=== PATIENT | female | born 1930 | race Caucasian/White ===

== ENCOUNTER 2016-06-29 11:00 | Inpatient (IN) | payer MEDICARE, BC ==
--- NOTE | ~2016-06-29 | A ---
[facility] Nutrition Therapy DATE: 07/01/16 Patient: NAM GUPTA Physician: JAUN Address: [address] Room/Bed: [address] [place] [address], Zip: [place] [address] Admit Date: 06/29/16 Date of : 31 Height: 5 5 Weight: 103 47 NUTRITIONAL ASSESSMENT: REASON: Low BMI 86 yo female admitted for generalized weakness PMH: CHF, CAD s/p stents, HTN, cardiac catherization, hyperlipidemia, intracranial aneurysm, vitamin B12 deficiency, hypothyroidism Anthropometrics: Ht: 65" Adm wt: 47 kg BMI: 17.1 IBW: 56.8 kg, 83% IBW Labs: GFR 41.2 Meds: Levaquin (IV), zofran, lopressor, protonix, NaCl, levothroid (PO) I/O & Bowel function: 1080/251, last BM 06/30 Skin Integrity: Ramer rash all over Edema: none noted Estimated Nutrition Needs: Increased due to low body weight Diet: Heart healthy Assessment: Chart reviewed, events noted. RD spoke with the pt at bedside. Pt reports that she has been gradually losing weight over the past 3-4 months due to decreased appetite and eating small portions. Pt reportedly weighed 109# at her last visit to the Doctor's office 6-7 weeks ago, indicating ~6# weight loss since then. Pt states that her anxiety medication helps with her appetite; however, she does not take it every day. Pt consumes ~one Ensure supplement per day at home, and has consumed ~50% of each meal since admission. RD encouraged increased protein-calorie intake, and suggested smaller, more frequent meals. Pt voiced understanding, and is agreeable to one Ensure per day + [address] will order. Dx: Unintentional weight loss RT decreased appetite, possibly anxiety AEB ~6# weight loss in 6-7 weeks, BMI 17.1, 83% IBW. Intervention: 1. Liberalize to 2 gram Na+ diet 2. Add 6 small meals to diet order 3. Ensure once daily [facility] Nutrition Therapy DATE: 07/01/16 Patient: NAM GUPTA Physician: LINCOLN Address: [address] Room/Bed: [address] [place] [address], Zip: [place] [address] Admit Date: 06/29/16 Date of : 31 Height: 5 5 Weight: 103 47 Monitoring, Evaluation and Goals: 1. Oral intake; consume >50-75% meals 2. Labs; WNL 3. Weight; promote weight gain towards healthy BMI, prevent weight loss Recommendations: 1. Liberalize diet to 2 gram Na+/ 6 small meals to promote adequate nutrient intake and weight gain. Pt does not require fat restriction with heart healthy diet. 2. Ensure vanilla once daily for supplemental nutrition 3. Appreciate staff encouraging adequate PO intake as needed. Encourage smaller, more frequent meals. Pt is at mild-moderate nutritional risk. RD will follow hospital course. Respectfully, TOMER MIXON RD, LD Food and Nutrition[facility] cc: client file
--- NOTE | ~2016-06-29 | CT4 ---
[facility] A Service of [facility] RADIOLOGY TEXT RESULTS PATIENT: NAM GUPTA LOCATION: C3A 324-01 : 31 UNIT #: [id number] AGE: [address]: Tahmina Foy MD SEX: F ORDER DR: [id number] [facility] [address] [place], [place] [address] [id number] E MR#: [id number] #: [id number] NAME: NAM GUPTA : 1930 SEX: F STUDY DATE/TIME: 06/29/2016 11:25 UNIT: ADALBERTO ROOM: STUDY DESCRIPTION: CT Abd and Pelv Wo Cont Attending Physician: Erna Ledesma M.D. Referring Physician: Self Referral-Refer Use Only Ordering Physician: Erna Ledesma M.D. Primary Care Physician: Kasie Tesfaye M.D. MEDICAL IMAGING REPORT This report is preliminary unless electronic signature is present EXAM CT of the abdomen and pelvis without contrast dated 06/29/2016. COMPARISON CT abdomen and pelvis with contrast dated 07/28/2015. HISTORY Weakness for 2 weeks. Epigastric pain for 3-4 days. History of stroke and TIA. TECHNIQUE This CT exam was performed with one or more of the following radiation dose reduction techniques: automatic exposure control, adjustment of mA and/or kV according to patient size, and iterative reconstruction. FINDINGS CT of the abdomen and pelvis were obtained without IV or oral contrast in the axial plane followed by sagittal and coronal reformats. LOWER CHEST: There are multiple calcified right lower lobe lung nodules suggestive of old granulomatous disease. Minimal scarring/atelectasis is seen in the posterior right lung base with a noncalcified 3.5 mm right posterobasal lower lobe nodule. Minimal linear atelectasis/pleural thickening is noted along the inferior left oblique fissure. It appears to have slightly improved when compared to the previous study. Previously noted pleural thickening and bilateral lower lobe posterior infiltrate/pleural thickening have improved since last year. No pleural effusion is seen. Degenerative changes are in the thoracic spine. Heart is of normal size. There are probably coronary arteriovascular calcifications. ABDOMEN: Lack of IV contrast limits evaluation of solid organs. Grossly the liver, pancreas, right adrenal gland are within normal limits. There [facility] A Service of [facility] RADIOLOGY TEXT RESULTS PATIENT: NAM GUPTA LOCATION: C3A 324-01 : 31 UNIT #: [id number] AGE: [address]: Tahmina Foy MD SEX: F ORDER DR: is minimal nodular thickening of 1 of the limbs of the left adrenal gland measuring about 1.3 x 1 cm, nonspecific. No obvious calcifications are noted in bilateral kidneys to suggest renal stones. No hydronephrosis or obvious contour deforming mass. There are multiple calcifications in the spleen, likely related to old granulomatous disease. Splenic arterial calcification is also seen. Lack of oral contrast limits evaluation of the hollow organs of the GI tract. No evidence of bowel obstruction, free fluid or free air is seen intraperitoneally. Appendix is within normal limits without any signs of acute inflammation. Atherosclerotic aortic vascular calcification is noted with extension into the origins of bilateral renal arteries, worse on the left when compared to the right, and they probably cause stenosis of the vessels. Degenerative changes are noted in the lumbar spine at various levels, relatively worse at L4-5 with hhdq-nz-[id number] canal stenosis and bilateral neural foraminal narrowing along with facet changes. PELVIS: There are a few diverticula associated with the rectosigmoid colon. No associated acute diverticulitis is seen. Atrophied partly calcified uterus is noted, which is probably age appropriate in size. There is no free fluid or significant lymphadenopathy. Urinary bladder does not demonstrate any stones. There is diffuse bony osteopenia. IMPRESSION 1. There is improvement in the findings along the bilateral lung bases when compared to the previous study from last year. There is still some residual atelectasis/minimal infiltrate in the right lung base with a smaller noncalcified 3.5 mm lung nodule when compared to the prior study. Minimal pleural thickening/atelectasis was also noted along the inferior aspect of the left oblique fissure. 2. The left adrenal gland appears to be slightly prominent involving 1 of the limbs when compared to the other side. It could be within normal limits for this patient or it could contain a small nodule. This appearance was not as well seen in the previous study. It measures about 1.3 x 1 cm. 3. Diverticulosis without acute diverticulitis. 4. Visualized appendix and gallbladder are unremarkable. 5. Degenerative changes are noted at multiple levels of the thoracolumbar spine. 6. Arteriovascular calcifications are noted particularly involving the aorta and extending into the origins of bilateral renal arteries, greater on the left when compared to the right. They probably cause moderate to severe on the left and moderate on the right regarding renal arterial stenosis. Correlate clinically and, depending on the need, further imaging can be obtained. It is stable when compared to the prior study from last year. Dictated by... Henry Ramirez M.D. [facility] A Service of [facility] RADIOLOGY TEXT RESULTS PATIENT: NAM GUPTA LOCATION: [facility] 324-01 : 31 UNIT #: [id number] AGE: [address]: Tahmina Foy MD SEX: F ORDER DR: THIS IS AN ELECTRONICALLY VERIFIED REPORT Henry Ramirez M.D. at 07/01/2016 1:48 PM CPR/pc TD: 06/29/2016 14:09 JOB #: [id number] MEDICAL IMAGING REPORT Page 1 of 1 COPY
--- NOTE | ~2016-06-29 | HP ---
Unit #: [id number] #: [id number] Patient: NAM GUPTA [id number] [place], [place] [address] [id number] I MR#: [id number] NAME: NAM GUPTA ROOM: 324 Age: 86 Sex: F Admission Date: 06/29/2016 : 1930 Attending Physician: Yimi Fan M.D. Referring Physician: Self Referral-Refer Use Only Primary Care Physician: Kasie Tesfaye M.D. HISTORY AND PHYSICAL CHIEF COMPLAINT Generalized weakness for about three weeks. HISTORY OF PRESENT ILLNESS This is a pleasant, 86-year-old female with a past history of CHF, coronary artery disease status post stents, hypertension, hyperlipidemia, who basically has not been feeling well for the past two weeks. She recently saw her primary care provider prior to not feeling well and did not really know what exactly the issue was. Her blood pressure was elevated when she saw her primary care provider who placed her on Norvasc. Because she has had some sort of a bad recollection of a situation while being on Norvasc in the past she thought that Norvasc was responsible for her feeling generally weak. She presented to the emergency room for evaluation. She denies any cough per se, denies any nausea or vomiting, PND or orthopnea, denies any chest pain. Workup in the emergency room revealed atelectasis and small infiltrate in the right lung base on a CT scan of the abdomen and pelvis. REVIEW OF SYSTEMS Complete 10-point review of systems has been done and pertinent positives as noted above. She denied any dysuria. PAST MEDICAL HISTORY 1. Congestive heart failure. Her primary autoglazier is Dr. Schneider. 2. Coronary artery disease, status post cardiac stents placed. 3. Hypertension. 4. Hyperlipidemia. 5. Intracranial aneurysm. 6. B12 deficiency. 7. Hypothyroidism. 8. Chronic left bundle-branch block. 9. Anxiety and depression. PAST SURGICAL HISTORY 1. Cardiac catheterization and stent placement. 2. Cataract surgery. SOCIAL HISTORY No tobacco use, alcohol use or illicit drug use. The patient is a Full Code. FAMILY HISTORY Family history is notable for coronary artery disease. Unit #: [id number] #: [id number] Patient: NAM GUPTA MEDICATIONS Medications include: 1. Metoprolol tartrate 50 mg p.o. b.i.d. 2. Aspirin 81 mg p.o. daily. 3. Levothyroxine sodium 75 mcg p.o. daily. 4. Hydrochlorothiazide 12.5 mg p.o. daily. 5. Plavix 75 mg p.o. daily. PHYSICAL EXAMINATION GENERAL: On examination she was comfortable, not in any distress. The patient looks frail. VITAL SIGNS: Blood pressure on admission to the ER was 193/95, pulse 67, respiratory rate 16, temperature 97.6. HEENT: Pupils are equal and reactive to light and accommodation. NECK: Neck was supple, without thyromegaly. CARDIOVASCULAR SYSTEM: First and second heart sounds only. SKIN: Warm and dry, with no rashes. EXTREMITIES: No lower extremity edema that I could appreciate. LYMPHATIC SYSTEM: No enlarged peripheral lymphadenopathy that I could appreciate. PSYCHIATRIC ASSESSMENT: Did not seem to respond to external stimuli. Alert and oriented x3. CENTRAL NERVOUS SYSTEM EXAM: Moving all limbs spontaneously. Cranial nerves II-XII are grossly intact. DIAGNOSTIC STUDIES CARDIOVASCULAR: She had an EKG which showed sinus twin with ventricular rate of 59 beats per minute with a left bundle-branch block. IMAGING: She had a chest x-ray which was significant for calcifications notable in the region of her bilateral lower chest. She had a CT scan of her abdomen and pelvis which showed minimal linear atelectasis/pleural thickening noted along the inferior left oblique fissure and scarring with conclusion that she had a residual atelectasis and minimal infiltrates in the right lung base. LABORATORY: She had a urinalysis which showed leukocyte esterase 3+ and urobilinogen 0.2. She had a CBC: WBC of 9.7, hemoglobin and hematocrit 13.8 and 41.3, with a platelet count of 221. She had chemistry: Glucose of 106, BUN and creatinine 20 and 1.3 with a sodium and potassium of 113 and 3.6, chloride of 100. BNP was 83. ASSESSMENT AND PLAN 1. Pneumonia: Put her on Rocephin and Zithromax for community-acquired pneumonia. 2. Coronary artery disease: This is stable. Will get three sets of cardiac enzymes. Troponin in the emergency room was 0.07. Should her cardiac markers be elevated, my managing colleague would consider the need for a cardiology consult, (1) stent in the past. 3. Hypertension: Control is poor at this time. Patient might benefit from hydralazine 25 mg p.o. t.i.d. scheduled. 4. Debility: This is probably responsible for her generalized weakness. This may be an associated post-pneumonia debility (2) other electrolyte abnormalities. I will order a TSH, magnesium and phosphorus as well as a CBC and BMP in the morning. Unit #: [id number] #: [id number] Patient: NAM GUPTA 5. Hypothyroidism: Patient is on Synthroid. Will continue her thyroid supplementation at this time. 6. For DVT prophylaxis will put her on SCDs. 7. For GI prophylaxis will put her on Protonix 40 mg p.o. daily. Dictated by Corrine Grossman/susan TD: 06/29/2016 19:00 JOB #: [id number] HISTORY AND PHYSICAL Page 1 of 1 X Yimi Fan MD HISTORY AND PHYSICAL
--- NOTE | ~2016-06-29 | EKG ---
PATIENT: NAM GUPTA UNIT #: [id number] Ventricular Rate: 59 BPM Atrial Rate: 59 BPM P-R Interval: 176 ms QRS Duration: 136 ms Q-T Interval: 466 ms QTC Calculation(Bezet): 461 ms P Valmeyer: 85 degrees Calculated R Valmeyer: 6 degrees Calculated T Valmeyer: 142 degrees Diagnosis Line: Sinus bradycardia Diagnosis Line: Left bundle branch block Diagnosis Line: Abnormal ECG Diagnosis Line: When compared with ECG of 11-JUN-2015 10:23, Diagnosis Line: T wave inversion now evident in Anterior leads Diagnosis Line: Confirmed by LYN FINLEY MD ([id number]) on 06/30/2016 Diagnosis Line: 4:33:26 PM INTERPRETING MD: MALIA PATIÑO
--- NOTE | ~2016-06-29 | DS ---
Unit #: [id number] #: [id number] Patient: NAM GUPTA [id number] [address] [address] [id number] I MR#: [id number] NAME: NAM GUPTA ROOM: 324 Age: 86 Sex: F Admission Date: 06/29/2016 : 1930 Discharge Date: 07/01/2016 Attending Physician: Tahmina Foy M.D. Primary Care Physician: Kasie Tesfaye M.D. DISCHARGE SUMMARY DISCHARGE DIAGNOSES 1. Pneumonia. 2. Left adrenal nodule; needs outpatient followup. 3. History of chronic diastolic heart failure. 4. Coronary artery disease status post cardiac stent. 5. Hypertension. 6. Hyperlipidemia. 7. History of intracranial aneurysm. 8. B12 deficiency. 9. Hypothyroidism. 10. Chronic left bundle branch block. 11. Anxiety. 12. Depression. 13. Underweight with calorie malnutrition with weight loss. 14. Generalized weakness. CONSULTATIONS None. PROCEDURES None. DIAGNOSTIC TESTING IMAGING: CAT scan of the abdomen and pelvis shows residual minimal infiltrate in right lung base. Left adrenal gland with small nodule, 1.3 cm x 1 cm, present. Diverticulosis present. Chest x-ray shows no dense consolidation. CARDIOVASCULAR: EKG - Sinus bradycardia. LAB DATA: TSH 4.45. Troponin negative. Urinalysis shows WBCs 10-25, leukocyte esterase 3+. ALLERGIES Penicillin and ticlopidine. DISCHARGE MEDICATIONS 1. Metoprolol 50 mg p.o. b.i.d. 2. Hydralazine 25 t.i.d. 3. Aspirin 81 daily. 4. Plavix 75 daily. 5. Levothyroxine 75 mcg p.o. daily. 6. Levaquin 500 p.o. daily for 5 days. Unit #: [id number] #: [id number] Patient: NAM GUPTA HOSPITALIZATION COURSE This is an 86 year old admitted because of generalized weakness. Right lung base community-acquired pneumonia. The patient was started on Levaquin. The patient currently is afebrile. WBC normal. Patient will be discharged on p.o. Levaquin and to follow with family physician as an outpatient. Likely urinary tract infection. Continue with Levaquin. Cultures are pending. Hypertension, uncontrolled. I added hydralazine. I am going to discontinue Hydrochlorothiazide because of possible generalized weakness and dehydration. Generalized weakness/dehydration. Patient was seen by physical therapy. They recommend home with home health. Underweight with calorie malnutrition. Continue diet as per arts and crafts instructor. Chronic diastolic heart failure. Stable. Hypothyroidism. Stable. Patient has adrenal nodule. She needs repeat CT abdomen and pelvis in 3 months and follow with family physician with results. DISCHARGE PLAN 1. Discharge home with home health. 2. Follow with family physician in 1 week. Dictated by... Corrine Thompson/cassandra TD: 07/02/2016 07:55 JOB #: [id number] DISCHARGE SUMMARY Page 1 of 1 X Tahmina Fyo MD DISCHARGE SUMMARY
--- NOTE | ~2016-06-29 | CR72 ---
[facility] A Service of [facility] & [facility] RADIOLOGY TEXT RESULTS PATIENT: NAM GUPTA LOCATION: A 324-01 : 31 UNIT #: [id number] AGE: [address]: Tahmina Foy MD SEX: F ORDER DR: [id number] [facility] [address] [place], [place] [address] [id number] E MR#: [id number] Acc #: [id number] NAME: NAM GUPTA : 1930 SEX: F STUDY DATE/TIME: 06/29/2016 11:13 UNIT: ADALBERTO ROOM: STUDY DESCRIPTION: CR Chest Single View Portable Attending Physician: Erna Ledesma M.D. Referring Physician: Abril Self Referred Ordering Physician: Erna Ledesma M.D. Primary Care Physician: Kasie Tesfaye M.D. MEDICAL IMAGING REPORT This report is preliminary unless electronic signature is present EXAM Single view of the chest dated 06/29/2016 at 1113 hours. COMPARISON Single view of the chest dated 05/12/2014. HISTORY Mild congestion for 2 weeks. FINDINGS Single view of the chest was obtained. Lungs are hyperinflated suggestive of emphysematous changes. No patchy dense consolidation, pleural effusion, or pneumothorax. There are calcifications noted in the region of bilateral lower chest. They could represent calcified lung nodules or calcified pleural plaques. They appear to have worsened when compared to the prior chest x-ray from [address] abdomen and pelvis study from last year did demonstrate calcified right lower lobe lung nodules attributing for some of calcifications. The abdominal study does not include the entire chest. These calcifications have a relatively benign nonaggressive appearance. Heart is of normal size. Bones do not demonstrate any significant abnormality. Dictated by... Henry Ramirez M.D. THIS IS AN ELECTRONICALLY VERIFIED REPORT Henry Ramirez M.D. at 07/01/2016 1:47 PM CPR/tmw TD: 06/29/2016 13:41 JOB #: [id number] [facility] A Service of [facility] & [facility] RADIOLOGY TEXT RESULTS PATIENT: NAM GUPTA LOCATION: [facility] 324-01 : 31 UNIT #: [id number] AGE: [address]: Tahmina Foy MD SEX: F ORDER DR: MEDICAL IMAGING REPORT Page 1 of 1 COPY
[~2016-06-29 11:00] MED LIST: ALPRAZOLAM OD0.25 MG PO; ALPRAZOLAM PO; ALPRAZOLAM0.25 M1 PO; ALPRAZOLAM0.25 MG PO; AMITRIPTYLINE H25 MG PO; AMITRYPTYLINE PO; ASPIRIN EC81 M1 PO; ASPIRINEC PO; ATORVASTATIN CA10 MG PO; BAYER CHEWABLE81 MG PO; CLONIDINE HCL0.1 MG PO; CLOPIDOGREL BIS75 MG PO; CLOPIDOGREL75 MG PO; CYANOCOBAL1000 MCG/M INJ; CYANOCOBALAM1000 MCG PO; DIFLUCAN200 MG PO; DITROPAN5 MG PO; ECOTRIN81 M1 PO; HCTZ PO; HYDRALAZINE HCL25 MG PO; HYDROCHLOROTH12.5 MG PO; LASIX20 MG PO; LEVOTHYROXINE50 MCG PO; LIPITOR PO; LISINOPRIL10 MG PO; LISINOPRIL5 MG PO; LOPRESSOR PO; MECLIZINE HCL12.5 M2 PO; METOPROLOL SUC100 MG PO; METOPROLOL TAR25 MG PO; MUCINEX DM1 TAB.SR . PO; NITROGLYGERIN0.4 MG SL; NITROSTAT0.4 MG SL; NORVASC PO; PAIN RELIEF650 MG PO; PLAVIX PO; SYNTHROID PO; THERAPEUTIC M1 UDTA1 PO; TIROSINT25 MCG PO; TOPROL XL 50 MG50 MG PO; TOPROL XL PO; VITAMIN D50000 UNIT PO; ZITHROMAX PO
[2016-06-29 11:18] LABS: POC - CKMB <1.0 ng/mL (0.0-7.9); POC - TROPONIN 0.07 ng/mL (<=0.05)
[2016-06-29 11:21] LABS: BASOPHIL# 0.1 X10e3 (0-0.3); EOSINOPHIL# 0.4 X10e3 (0-0.7); EOSINOPHIL% 3.6 % (0.0-7.0); HEMATOCRIT 41.3 % (35.0-45.0); HEMOGLOBIN 13.8 gm/dL (12.0-16.0); LYMPHOCYTE# 2.2 X10e3 (1.0-3.5); LYMPHOCYTE% 22.6 % (17.0-45.0); MEAN CORPUSCULAR HGB CONC 33.3 g/dL (30-36); MEAN PLATELET VOLUME 8.5 FL (6.5-11.5); MONOCYTE# 0.7 X10e3 (0-1.0); NEUTROPHIL# 6.4 X10e3 (1.5-7.1); NEUTROPHIL% 65.8 % (40-75); PLATELET COUNT 221 X10e3 (140-420); RED BLOOD COUNT 4.44 X10e (3.90-5.30); RED CELL DISTRIBUTION WIDTH 13.5 % (11.0-15.5); WHITE BLOOD COUNT 9.7 X10e3 (4.0-10.5)
[2016-06-29 11:22] LABS: DIFF IND NO
[2016-06-29] MEDS ORDERED: HYDROCHLOROTH12.5 M1 PO (11:27)
[2016-06-29] MEDS ORDERED: ASPIRIN81 MG PO (11:27)
[2016-06-29] MEDS ORDERED: CLOPIDOGREL BIS75 MG PO (11:28)
[2016-06-29 11:52] LABS: ALBUMIN SERUM 4.3 g/dL (3.5-5.0); BILIRUBIN, DIRECT 0.2 mg/dL (0.0-0.2); BILIRUBIN,INDIRECT 0.6 mg/dL (0.0-0.9); BILIRUBIN,TOTAL 0.8 mg/dL (0.2-2.0); BUN/CREATININE RATIO 15.38; CALCIUM SERUM 9.5 mg/dL (8.4-10.2); CREATININE SERUM 1.3 mg/dL (0.6-1.4); GLOM FILT RATE Estimated 37.4 mL/min (>60); POTASSIUM 3.6 mmol/L (3.5-5.1); PROTEIN TOTAL SERUM 7.2 g/dL (6.0-8.3)
[2016-06-29 12:23] LABS: URINE SOURCE CLEAN CATCH
[2016-06-29 12:30] LABS: URINE APPEARANCE CLEAR; URINE BILIRUBIN NEG (NEG); URINE BLOOD NEG (NEG); URINE COLOR YELLOW; URINE GLUCOSE NEG (NEG); URINE KETONE NEG (NEG); URINE LEUKOCYTE ESTERASE 3+ (NEG); URINE NITRATE NEG (NEG); URINE PH 7.5 (5-8); URINE PROTEIN NEG (NEG); URINE SPECIFIC GRAVITY 1.011 (1.003-1.035); URINE UROBILINOGEN 0.2 MG/DL (NEG)
[2016-06-29 12:31] LABS: CULTURE INDICATED? YES; URBCS1 AUWI 0-2 /[HPF] (0-2); URINE BACTERIA AUWI NEG (NEGATIVE); URINE SQUAMOUS EPITHELIAL CELL NONE SEEN /[HPF]
[2016-06-29 12:47] LABS: POC - CKMB <1.0 ng/mL (0.0-7.9); POC - TROPONIN 0.07 ng/mL (<=0.05)
[2016-06-29 21:04] LABS: CK TOTAL 55 IU/L (26-140)
[2016-06-30 01:21] LABS: MB 1.3 ng/ml
[2016-06-30 07:00] LABS: HEMATOCRIT 40.5 % (35.0-45.0); HEMOGLOBIN 13.4 gm/dL (12.0-16.0); MEAN CELL VOLUME 92.9 FL (83-96); MEAN CORPUSCULAR HEMOGLOBIN 30.8 PG (28-34); MEAN CORPUSCULAR HGB CONC 33.1 g/dL (30-36); MEAN PLATELET VOLUME 8.6 FL (6.5-11.5); RED BLOOD COUNT 4.36 X10e (3.90-5.30); RED CELL DISTRIBUTION WIDTH 13.4 % (11.0-15.5); WHITE BLOOD COUNT 8.4 X10e3 (4.0-10.5)
[2016-06-30 07:43] LABS: BUN/CREATININE RATIO 17.5; CALCIUM SERUM 9.3 mg/dL (8.4-10.2); CREATININE SERUM 1.2 mg/dL (0.6-1.4); GLOM FILT RATE Estimated 41.2 mL/min (>60); MAGNESIUM 1.9 mg/dL (1.6-3.0); PHOSPHOROUS 4.3 mg/dL (2.5-4.6); POTASSIUM 3.6 mmol/L (3.5-5.1)
[2016-06-30 08:28] LABS: %MB 2.6 % (0.0-4.0); MB 1.6 ng/ml
[2016-07-01] MEDS ORDERED: HYDRALAZINE HCL25 MG PO (17:25)
[2016-07-01] MEDS ORDERED: LEVOFLOXACIN500 MG PO (17:26)
== END 2016-07-01 18:23 | disposition home health service (06) | DRG 194 ==
LOC: CED 11:00 → C3A PCU 14:40
PROVIDERS: Emergency Medicine; Family Medicine
DX: J18.9 Pneumonia, unspecified organism (principal); I50.32 Chronic diastolic (congestive) heart failure; I11.0 Hypertensive heart disease with heart failure; N39.0 Urinary tract infection, site not specified; E44.1 Mild protein-calorie malnutrition; Z68.1 Body mass index [BMI] 19.9 or less, adult; I25.10 Atherosclerotic heart disease of native coronary artery without angina pectoris; Z95.5 Presence of coronary angioplasty implant and graft; E78.5 Hyperlipidemia, unspecified; E53.8 Deficiency of other specified B group vitamins; E03.9 Hypothyroidism, unspecified; I44.7 Left bundle-branch block, unspecified; F41.9 Anxiety disorder, unspecified; F32.9 Major depressive disorder, single episode, unspecified; R53.1 Weakness; Z88.0 Allergy status to penicillin; Z98.49 Cataract extraction status, unspecified eye; Z79.82 Long term (current) use of aspirin; E86.0 Dehydration
CPT/HCPCS: 36415; 71010; 74176; 80048; 80076; 81003; 82550; 82553; 83690; 83735; 83880; 84100; 84443; 84484; 85025; 85027; 87086; 93005; 94760; 97110; 97116; 97162; 97530; 99285; G8978-GP; G8979-GP; J0456; J0696; J1956

== ENCOUNTER 2016-07-06 10:44 | Observation (INO) | payer MEDICARE, BC ==
--- NOTE | ~2016-07-06 | HP ---
Unit #: [id number] #: [id number] Patient: NAM GUPTA [id number] [place], [place] [address] [id number] I MR#: [id number] NAME: NAM GUPTA ROOM: 15725 Age: 86 Sex: F Admission Date: 07/06/2016 : 1930 Attending Physician: Vianey Warren M.D. Primary Care Physician: Kasie Tesfaye M.D. HISTORY AND PHYSICAL CHIEF COMPLAINT Diarrhea times 5 days. HISTORY OF PRESENT ILLNESS The patient is an 86-year-old female with past medical history of CHF, coronary artery disease, hypertension, hyperlipidemia, chronic left bundle branch block, intracranial aneurysm, B12 deficiency, hypothyroidism, anxiety depression, adrenal nodule, who presented to the emergency department for evaluation of the above. Of note, the patient was hospitalized at [facility] 06/29 through 07/01/2016 for pneumonia. She was discharged home on Levaquin which she has been taking as prescribed. The patient states that she has had diarrhea since the day she left the hospital. She reports three bouts of dark brown diarrhea within the past 24 hours. She has had one bout of nonbloody emesis. She denies any abdominal pain. No fever, no chest pain, no difficulty breathing, no cough, no urinary symptoms. In the emergency department, initial pulse and blood pressure were 78 and 132/66 respectively. Laboratory notable for BUN 24, creatinine 1.8. She was given 500 mL of normal saline in the emergency department. She is being admitted to [facility] for evaluation and further treatment. PAST MEDICAL HISTORY 1. Admission to [facility] 06/29 through 07/01/2016 for pneumonia. She was discharged home on Levaquin. 2. Congestive heart failure. The patient had an echocardiogram 03/28/2014 that showed an ejection fraction of 30% to 35% with apical akinesis, mild concentric left ventricular hypertrophy, mild mitral regurgitation, nnjy-lh-mjnjqfgu tricuspid regurgitation. She sees Dr. Schneider. 3. Coronary artery disease, status post cardiac stent placement. 4. Hypertension. 5. Hyperlipidemia. 6. Chronic left bundle branch block. 7. Intracranial aneurysm. 8. B12 deficiency. 9. Hypothyroidism. 10. Anxiety depression. 11. Adrenal nodule noted on CT of the abdomen and pelvis from 06/29/2016. PAST SURGICAL HISTORY 1. Cardiac catheterization. Unit #: [id number] #: [id number] Patient: NAM GUPTA 2. Cardiac stent placement. 3. Cataract surgery. ALLERGIES 1. Penicillin. 2. Ticlopidine. HOME MEDICATIONS 1. Metoprolol 50 mg b.i.d. 2. Aspirin 81 mg daily. 3. Levothyroxine 75 mcg daily. 4. Plavix 75 mg daily. 5. Hydralazine 25 mg t.i.d. 6. Levaquin 500 mg daily with one more dose remaining. SOCIAL HISTORY The patient's daughter lives with her. There is no tobacco or alcohol use. She typically walks without assistance. Her code status is a FULL CODE. FAMILY HISTORY Notable for coronary artery disease. REVIEW OF SYSTEMS A complete review of systems is negative except as indicated in the HPI. The patient has lost about 25 pounds over the past six to nine months. PHYSICAL EXAMINATION VITAL SIGNS: Temperature 97.9, pulse 78, respirations 16, blood pressure 132/66, oxygen saturation is 100% on room air. GENERAL: The patient is a very pleasant female who is awake and alert in no acute distress. HEENT: Head is atraumatic. Mucous membranes are dry. NECK: Supple. Trachea is midline. LUNGS: Clear to auscultation bilaterally with no increased work of breathing. HEART: Regular rate and rhythm. ABDOMEN: Soft, nontender. Bowel sounds present in all four quadrants. EXTREMITIES: Nontender with no pedal edema. NEUROLOGIC: Patient is awake and alert. She follows commands. PSYCHIATRIC: Mood and affect are normal. Patient is cooperative. SKIN OF EXAMINED AREAS: Warm and dry. DIAGNOSTIC STUDIES LABORATORY: Complete blood count is completely normal. C difficile from 07/04/2016 was negative. Comprehensive metabolic panel notable for bicarb 21, glucose 128, BUN 24, creatinine 1.8, lipase normal. Urinalysis notable for 1+ leukocyte esterase, 5-10 wbc's, no bacteria. CK is 52. Troponin is 0.04. ASSESSMENT The patient is an 86-year-old female with: 1. General weakness. 2. Nausea, vomiting, and diarrhea. 3. Avomy-fp-efmtiur kidney disease. The patient's creatinine was 1.2 on 06/30/2016, it is 1.[address] Clark's group as an outpatient. 4. History of pneumonia with one more dose of Levaquin remaining. Unit #: [id number] #: [id number] Patient: NAM GUPTA 5. Congestive heart failure with ejection fraction of 30% to 35% documented on echocardiogram 03/28/2014. 6. Coronary artery disease, status post cardiac stent placement followed by Dr. Schneider. 7. Hypertension. 8. Hyperlipidemia. 9. Chronic left bundle branch block. 10. Intracranial aneurysm. 11. B12 deficiency. 12. Hypothyroidism. 13. Anxiety and depression. 14. Adrenal nodule. The patient will follow up with her primary care physician regarding this. 15. Weight loss. PLAN 1. Admit for observation to intermediate level. 2. Normal saline at 75 mL per hour. 3. Healthy-heart diet if passes bedside swallow. 4. Stool for ova and parasites, C difficile culture and sensitivity. 5. Strict I's and O's. 6. Urine culture and sensitivity on urine in the lab. 7. Consult Dr. Clark regarding cogvb-po-mmzgonh kidney disease. 8. P.r.n. Zofran. 9. Check TSH. 10. Repeat labs in the morning including magnesium and phosphorus. 11. SCDs. 12. Additional workup and consultants based on above. 13. Regarding code status, the patient is a FULL CODE. 14. Check EKG if not done. Dictated by Corrine Caldwell/jenny TD: 07/06/2016 14:58 JOB #: [id number] HISTORY AND PHYSICAL Page 1 of 1 X Vianey Warren MD HISTORY AND PHYSICAL
--- NOTE | ~2016-07-06 | DS ---
Unit #: [id number] #: [id number] Patient: NAM BENSON [id number] [address] [address] [id number] I MR#: [id number] NAME: NAM BENSON ROOM: [facility] Age: 86 Sex: F Admission Date: 07/06/2016 : 1930 Discharge Date: 07/08/2016 Attending Physician: Jennifer Hughes M.D. Primary Care Physician: Kasie Tesfaye M.D. DISCHARGE SUMMARY PRINCIPAL DIAGNOSES 1. Antibiotic induced diarrhea. 2. Acute kidney injury on chronic kidney disease stage 3. Baseline creatinine approximately 1.3. Discharge creatinine 1.4. 3. Hypertension. 4. Non-anion gap metabolic acidosis secondary to diarrhea. 5. Recent pneumonia for which the patient has completed antibiotic therapy. 6. Chronic systolic congestive heart failure with ejection fraction of 30%-35%. 7. Mild to moderate tricuspid regurgitation 8. Coronary artery disease. 9. Hypothyroidism. 10. Anxiety and depression. 11. Adrenal nodule. 12. Mild protein malnutrition. 13. Underweight. CONSULTANTS Dr. Clark, nephrology. DIAGNOSTIC DATA IMAGING: CT scan of the abdomen and pelvis without contrast on 06/29/2016, with a prominent left adrenal gland. Diverticulosis noted. Arterial vascular calcifications noted involving the artery and the bilateral renal arteries, greater left than right. Chest x-ray on 06/29/2016 with hyperinflation. No other acute findings. CLINICAL HISTORY/HOSPITAL COURSE Ms. Benson is a nice 86-year-old female who presented to the emergency department with diarrhea. She was recently discharged on antibiotics secondary to pneumonia. Please refer to history and physical for further details. In the emergency department the patient was found to have a mildly elevated creatinine of 1.8. She was subsequently admitted. The patient was placed on low-dose IV fluids and nephrotoxic medications were held. Dr. Clark was also consulted. On the day of discharge creatinine is now at her baseline, which is 1.4. The patient may have underlying bilateral renal artery stenosis, but creatinine is not significantly elevated and blood pressure is stable. Thus, workup is going to be held at this time. In regard to the patient's diarrhea, this is resolved. Infectious workup was negative. She has completed antibiotics for her pneumonia and these Unit #: [id number] #: [id number] Patient: NAM BENSON will also be discontinued. The patient today is clinically stable and she will be discharged home. DISCHARGE CONDITION Stable. DISCHARGE DISPOSITION Discharge to home. DISCHARGE MEDICATIONS 1. Metoprolol tartrate 50 mg b.i.d. 2. Hydralazine 25 mg t.i.d. 3. Aspirin 81 mg daily. 4. Plavix 75 mg daily. 5. Levothyroxine 75 mcg p.o. daily. DISCHARGE DIET The patient was instructed to follow a heart healthy diet. She should increase her caloric intake and we did discuss six small meals daily. ACTIVITY She can increase her activity as tolerated. FOLLOWUP 1. The patient will follow up with Dr. Kasie Tesfaye in two weeks. 2. She should follow up with Dr. Clark in four to six weeks. Dictated by... Jennifer Hughes M.D. STONE/kathia TD: 07/09/2016 08:37 JOB #: [id number] DISCHARGE SUMMARY Page 1 of 1 X Jennifer Hughes MD X DISCHARGE SUMMARY
--- NOTE | ~2016-07-06 | CO ---
Unit #: [id number] #: [id number] Patient: AMANDA BENSON [id number] [address] [address] [id number] I MR#: [id number] NAME: AMANDA BENSON ROOM: [facility] Age: 86 Sex: F Admission Date: 07/06/2016 : 1930 Attending Physician: Vianey Warren M.D. Primary Care Physician: Kasie Tesfaye M.D. Consultation Date: 07/06/2016 CONSULTATION REPORT REASON FOR CONSULTATION Renal insufficiency. Thank you very much for asking us to see this patient in consultation. HISTORY OF PRESENT ILLNESS Ms. Amanda Benson is an 86-year-old female, with history of hypertension, history of diastolic congestive heart failure as well systolic with an EF of 30% to 35% and followed by Dr. Schneider for this, history of hypertension, who presented to the hospital today she has had diarrhea for about 4 to 5 days, decreased p.o. intake, a couple of episodes of vomiting. She denies any nonsteroidal use. Increased weakness over the last few days. The patient was noted upon presentation to have a BUN and creatinine of 24 and 1.8. Because of this, I was asked to see the patient. The patient was here in the hospital from 06/29/2016 to 07/01/2016 for pneumonia and was sent home on Levaquin. Creatinine on 06/30/2016 was 1.2. She states she did have a rash for 24 hours or less, on antibiotics she received last week, although I do not know at this point in time, which one that was. She denies any chest pain or shortness of breath. PAST MEDICAL HISTORY History of probably chronic kidney disease, stage 3 with creatinine has been 1.2 plus or minus over the last several years. History of left adrenal nodule found on CT scan; history of congestive heart failure with an EF around 30% to 35% with heart disease, status post angioplasty; history of hypertension; history of intracranial aneurysm; history of TIA many years ago, no residual; history of hyperlipidemia; history of hypothyroidism; history of anxiety; history of depression. ALLERGIES Include codeine and penicillin. SOCIAL HISTORY She lives with her daughter. Does not smoke or drink. MEDICATIONS At home include metoprolol 50 mg b.i.d., hydralazine 25 mg t.i.d., Plavix 75 mg a day, aspirin 81 mg a day, levothyroxine 75 mcg a day, and she was on Levaquin daily. FAMILY HISTORY Noncontributory. Unit #: [id number] #: [id number] Patient: AMANDA BENSON REVIEW OF SYSTEMS As mentioned in HPI. She denies any visual problems, sinus problems, cough, hemoptysis, sore throat, or difficulty swallowing. No neck pain or neck stiffness. No chest pain, chest heaviness, or palpitations. She denies any lower extremity swelling. No recent seizures or strokes. PHYSICAL EXAMINATION VITAL SIGNS: Temperature 97.9, pulse 78, blood pressure 132/66. HEENT: She is normocephalic and atraumatic. Pupils are equal, round, and reactive to light. Extraocular muscles are intact. Hearing appears to be normal. Mouth is clear. No erythema. No exudate. NECK: Supple. No JVD. CARDIAC: She has regular rhythm without a rub. No S3 or S4. LUNGS: Clear bilaterally. No wheezes, rhonchi, or rales. ABDOMEN: Bowel sounds positive, nontender, soft. No masses felt. No hepato-organomegaly noted. EXTREMITIES: She has no lower extremity swelling. Pulses are intact in lower extremities. JOINTS: No joint pain or joint swelling. SKIN: No rashes. NEURO: Appears to be intact motor and sensory grossly. : Deferred. DIAGNOSTIC STUDIES LABORATORY RESULTS: Shows sodium of 139, potassium 3.6, chloride is 106, bicarb is 21, BUN and creatinine 24 and 1.8, glucose 128. Calcium is 9.6, albumin is 3.9. CPK is 52, troponin is 0.01. Again on 06/30/2016 creatinine is 1.2. Hemoglobin 13.2, white count 6000, platelets 225,000. UA shows specific gravity of 1.02, no protein, 2 to 5 rbc's, 5 to 10, wbc's. IMAGING STUDIES: CT scan of the abdomen on 06/29/2016 showed some calcium along the renal artery suggest possible renal artery stenosis. ASSESSMENT AND PLAN 1. Acute kidney injury. This is a lady who probably has some mild chronic kidney disease, possibly related to hypertension versus age versus even theoretically bilateral renal artery stenosis, who now with acute renal insufficiency most likely related to volume depletion from nausea, vomiting, and diarrhea. I agree with some mild hydration, but obviously due to her low ejection fraction 30% to 35%, I agree with 75 mL an hour. We will check urine eosinophils to rule out acute interstitial nephritis with some reaction antibiotics last week. We will check random urine sodium and urine culture if not done since she did have a few wbc's in her urine. Unless her renal function does not improve, then we will check renal ultrasound, but for now, she had a CT last week, so if her renal function does not improve, then we will check that. We will check serum protein immunofixation, depending on how she does and depending on what further workup and treatment. 2. Diarrhea, rule out Clostridium difficile. 3. History of hypertension. Hold off on an angiotensin receptor wade or an CONNOR inhibitor for now. 4. Hypothyroidism. 5. History of pneumonia. Dictated by.Jaycob Clark M.D. Unit #: [id number] #: [id number] Patient: AMANDA BENSON JHONATHAN/modl TD: 07/07/2016 04:11 JOB #: [id number] CONSULTATION REPORT Page 1 of 1 X Kalyani Clark MD X CONSULTATION REPORT
--- NOTE | ~2016-07-06 | EKG ---
PATIENT: NAM GUPTA UNIT #: [id number] Ventricular Rate: 67 BPM Atrial Rate: 67 BPM P-R Interval: 186 ms QRS Duration: 128 ms Q-T Interval: 460 ms QTC Calculation(Bezet): 486 ms P [place]: 80 degrees Calculated R Harrison: -12 degrees Calculated T Harrison: 107 degrees Diagnosis Line: Normal sinus rhythm Diagnosis Line: Possible Left atrial enlargement Diagnosis Line: Left bundle branch block Diagnosis Line: Abnormal ECG Diagnosis Line: When compared with ECG of 29-JUN-2016 11:33, Diagnosis Line: No significant change was found Diagnosis Line: Confirmed by LYN FINLEY MD ([id number]) on 07/07/2016 Diagnosis Line: 7:19:59 AM INTERPRETING MD: MALIA PATIÑO
[2016-07-06 10:39] LABS: BASOPHIL% 0.5 % (0-2.5); EOSINOPHIL# 0.3 X10e3 (0-0.7); EOSINOPHIL% 4.6 % (0.0-7.0); HEMATOCRIT 38.9 % (35.0-45.0); HEMOGLOBIN 13.2 gm/dL (12.0-16.0); LYMPHOCYTE# 1.6 X10e3 (1.0-3.5); LYMPHOCYTE% 25.7 % (17.0-45.0); MEAN CELL VOLUME 91.3 FL (83-96); MEAN CORPUSCULAR HEMOGLOBIN 31.1 PG (28-34); MEAN PLATELET VOLUME 8.2 FL (6.5-11.5); MONOCYTE# 0.4 X10e3 (0-1.0); MONOCYTE% 5.9 % (3.0-12.0); NEUTROPHIL# 3.8 X10e3 (1.5-7.1); NEUTROPHIL% 63.3 % (40-75); PLATELET COUNT 225 X10e3 (140-420); RED BLOOD COUNT 4.26 X10e (3.90-5.30); RED CELL DISTRIBUTION WIDTH 13.3 % (11.0-15.5)
[2016-07-06 10:40] LABS: DIFF IND NO
[~2016-07-06 10:44] MED LIST changes: +ASPIRIN81 MG PO; +HYDROCHLOROTH12.5 M1 PO; +LEVOFLOXACIN500 MG PO
[2016-07-06 11:06] LABS: ALBUMIN SERUM 3.9 g/dL (3.5-5.0); BILIRUBIN, DIRECT 0.2 mg/dL (0.0-0.2); BILIRUBIN,INDIRECT 0.8 mg/dL (0.0-0.9); BUN/CREATININE RATIO 13.33; CALCIUM SERUM 9.6 mg/dL (8.4-10.2); CREATININE SERUM 1.8 mg/dL (0.6-1.4); GLOM FILT RATE Estimated 25.2 mL/min (>60); POTASSIUM 3.6 mmol/L (3.5-5.1); PROTEIN TOTAL SERUM 6.7 g/dL (6.0-8.3)
[2016-07-06 11:23] LABS: URINE SOURCE CLEAN CATCH
[2016-07-06 11:28] LABS: URINE APPEARANCE CLEAR; URINE BILIRUBIN NEG (NEG); URINE BLOOD NEG (NEG); URINE COLOR YELLOW; URINE GLUCOSE NEG (NEG); URINE KETONE NEG (NEG); URINE LEUKOCYTE ESTERASE 1+ (NEG); URINE NITRATE NEG (NEG); URINE PROTEIN NEG (NEG); URINE SPECIFIC GRAVITY 1.012 (1.003-1.035); URINE UROBILINOGEN 0.2 MG/DL (NEG)
[2016-07-06 11:30] LABS: CULTURE INDICATED? YES; URINE BACTERIA AUWI NEG (NEGATIVE); URINE SQUAMOUS EPITHELIAL CELL FEW /[HPF]
[2016-07-06 12:44] LABS: CK TOTAL 52 IU/L (26-140)
[2016-07-06 19:15] LABS: %MB 2.5 % (0.0-4.0); MB 1.6 ng/ml
[2016-07-07 05:18] LABS: BASOPHIL# 0.1 X10e3 (0-0.3); BASOPHIL% 1.2 % (0-2.5); EOSINOPHIL# 0.3 X10e3 (0-0.7); EOSINOPHIL% 2.9 % (0.0-7.0); LYMPHOCYTE# 2.4 X10e3 (1.0-3.5); MEAN CELL VOLUME 93.1 FL (83-96); MEAN CORPUSCULAR HEMOGLOBIN 30.9 PG (28-34); MEAN CORPUSCULAR HGB CONC 33.2 g/dL (30-36); MEAN PLATELET VOLUME 8.9 FL (6.5-11.5); MONOCYTE# 0.7 X10e3 (0-1.0); MONOCYTE% 8.1 % (3.0-12.0); NEUTROPHIL# 5.6 X10e3 (1.5-7.1); NEUTROPHIL% 61.8 % (40-75); PLATELET COUNT 208 X10e3 (140-420); RED BLOOD COUNT 3.87 X10e (3.90-5.30); RED CELL DISTRIBUTION WIDTH 13.5 % (11.0-15.5)
[2016-07-07 05:24] LABS: DIFF IND NO; WHITE BLOOD COUNT 9.1 X10e3 (4.0-10.5)
[2016-07-07 05:49] LABS: ALBUMIN SERUM 3.4 g/dL (3.5-5.0); BILIRUBIN,TOTAL 0.9 mg/dL (0.2-2.0); BUN/CREATININE RATIO 15.38; CALCIUM SERUM 8.7 mg/dL (8.4-10.2); CREATININE SERUM 1.3 mg/dL (0.6-1.4); GLOM FILT RATE Estimated 37.4 mL/min (>60); MAGNESIUM 1.9 mg/dL (1.6-3.0); PHOSPHOROUS 3.4 mg/dL (2.5-4.6); POTASSIUM 3.9 mmol/L (3.5-5.1); PROTEIN TOTAL SERUM 5.9 g/dL (6.0-8.3)
[2016-07-08 07:05] LABS: BUN/CREATININE RATIO 11.42; CALCIUM SERUM 8.6 mg/dL (8.4-10.2); CREATININE SERUM 1.4 mg/dL (0.6-1.4); GLOM FILT RATE Estimated 34.2 mL/min (>60); POTASSIUM 3.8 mmol/L (3.5-5.1)
== END 2016-07-08 14:10 | disposition home or self-care (01) ==
LOC: CED 10:44 → CEDOF 11:50 → C3A PCU 21:03
PROVIDERS: Emergency Medicine; Family Medicine; Internal Medicine Nephrology
DX: K52.1 Toxic gastroenteritis and colitis (principal); T36.95XA Adverse effect of unspecified systemic antibiotic, initial encounter; N17.9 Acute kidney failure, unspecified; I13.0 Hypertensive heart and chronic kidney disease with heart failure and stage 1 through stage 4 chronic kidney disease, or unspecified chronic kidney disease; N18.3 Chronic kidney disease, stage 3 (moderate); I50.22 Chronic systolic (congestive) heart failure; E87.2 Acidosis; I07.1 Rheumatic tricuspid insufficiency; I25.10 Atherosclerotic heart disease of native coronary artery without angina pectoris; E03.9 Hypothyroidism, unspecified; F41.8 Other specified anxiety disorders; E44.1 Mild protein-calorie malnutrition; R63.6 Underweight; E27.9 Disorder of adrenal gland, unspecified
CPT/HCPCS: 36415; 80048; 80053; 80076; 81003; 82550; 82553; 83690; 83735; 84100; 84300; 84443; 84484; 85025; 86334; 87086; 89190; 93005; 94760; 96374; 97161; 97165; 99285; G0378; G8978-GP; G8979-GP; G8980-GP; G8987-GO; G8988-GO; G8989-GO

== ENCOUNTER → 2016-09-04 | Outpatient (CLI) | payer MEDICARE, BC ==
[~2016-09-04] MED LIST changes: +AMLODIPINE BESYL5 MG PO; +LOSARTAN POTASS50 MG PO; +PROAMATINE2.5 MG PO
--- NOTE | ~2016-09-04 | MR3 ---
[facility] A Service of [facility] RADIOLOGY TEXT RESULTS PATIENT: NAM GUPTA LOCATION: [facility] : 31 UNIT #: [id number] AGE: [address]: Leti Cevallos MD SEX: F ORDER DR: [id number] [address] [place], [place] [address] [id number] MR#: [id number] Acc #: [id number] NAME: NAM GUPTA : 1930 SEX: F STUDY DATE/TIME: 09/04/2016 7:36 UNIT: [facility] ROOM: STUDY DESCRIPTION: MR Abdomen Wo Contrast Attending Physician: Gadiel Cevallos M.D. Referring Physician: Gadiel Cevallos M.D. Ordering Physician: Gadiel Cevallos M.D. Primary Care Physician: Kasie Tesfaye M.D. MRI CENTER REPORT This report is preliminary unless electronic signature is present. EXAM MR abdomen INDICATION Adrenal mass. Abnormal CT scan of the abdomen. TECHNIQUE Multiplanar MRI of the abdomen without contrast. COMPARISON CT abdomen 06/29/2016 and 07/28/2015. FINDINGS There is a trace right pleural effusion. The morphology of the adrenal glands is within normal limits. There is some slight thickening of the left adrenal gland, however no discrete nodule is identified. No suspicious mass or lesion. There is tree-in-bud nodularity and some mucus plugging in the right lower lobe. IMPRESSION 1. Normal morphology of the adrenal glands. No discrete mass or lesion is identified. There is minimal thickening of the medial limb left adrenal gland, however no nodule is present. 2. Trace right pleural effusion. Small area of mucous plugging in the right lower lobe is unchanged from multiple prior studies. Dictated by... Meng Rees M.D. [facility] A Service [facility] RADIOLOGY TEXT RESULTS PATIENT: NAM GUPTA LOCATION: [facility] : 31 UNIT #: [id number] AGE: [address]: Leti Cevallos MD SEX: F ORDER DR: THIS IS AN ELECTRONICALLY VERIFIED REPORT Meng Rees M.D. at 09/05/2016 1:13 PM AURORA/christen TD: 09/05/2016 12:28 JOB #: [id number] MRI CENTER REPORT Page 1 of 1 COPY
== END | disposition home or self-care (01) ==
LOC: CMRI 08-29 10:00
DX: E27.8 Other specified disorders of adrenal gland (principal)
CPT/HCPCS: 74181

== ENCOUNTER 2016-11-23 08:14 | Inpatient (IN) | payer MEDICARE, BC ==
[~2016-11-23] VITALS: Ht 165.1 cm; Wt 48.3 kg
--- NOTE | ~2016-11-23 | A ---
[facility] DATE: 11/25/16 Patient: NAM CANDY Physician: HORACIO Address: [address] Room/Bed: [address] [place] [address], Zip: [place] [address] Admit Date: 11/23/16 Date of : [birth year] Height: 5 5 Weight: 106 48.3 NUTRITIONAL ASSESSMENT: REASON: Seen due to low BMI Admitting dx: 86 y/o female admitted with weakness PMH: Reviewed Anthropometrics: Ht: 65", Wt: 106 lbs, BMI: 17 (underweight) 4531-9733 weight range: 113-120 lbs Labs: Reviewed; nothing significant Meds: Reviewed Assessment: Chart reviewed, events noted. See admitting dx and PMH as stated above. RD previously assessed this patient on 07/01/16 due to underweight status- note reviewed. Patient has had gradual weight loss over a couple of years, however her weight has been stable this year and since her last admission. Her appetite has also been good and she drinks Ensure at home. She is on a healthy heart diet with Ensure ordered TID. Per MD, pt may be discharged today after cardiology sees. See RD recs below. Dx: Underweight r/t PMH AEB BMI 17.1. Intervention: Regular diet Monitoring, Evaluation and Goals: 1. PO intake > 75% of meals/supps. 2. Gradual weight gain towards a healthy BMI range. Monitor: per protocol, criteria to determine if above goals met Recommendations: 1. Consider changing diet to regular to liberalize food choices due to underweight status. 2. Continue Ensure TID (pt prefers vanilla). RD will follow Mild nutrition risk Respectfully, [facility] DATE: 11/25/16 Patient: NAM GUPTA Physician: HORACIO Address: [address] Room/Bed: [address] [place] [address], Zip: [place] [address] Admit Date: 11/23/16 Date of : [birth year] Height: 5 5 Weight: 106 48.3 Tiffany Maldonado, CASE, [facility] [employer] [facility] cc: client file
--- NOTE | ~2016-11-23 | DS ---
Unit #: [id number] #: [id number] Patient: NAM GUPTA [id number] [address] [address] [id number] I MR#: [id number] NAME: NAM GUPTA ROOM: 561 Age: 86 Sex: F Admission Date: 11/25/2016 : 1930 Discharge Date: 11/27/2016 Attending Physician: Te Figueredo M.D. Primary Care Physician: Kasie Tesfaye M.D. DISCHARGE SUMMARY The patient is an 86-year-old woman with a history significant for coronary artery disease, congestive heart failure, hypertension, hyperlipidemia, left bundle branch block, hypothyroidism, who presented with symptoms of generalized weakness. During her admission she was found to have postural hypotension. Also during her admission she experienced syncopal episode associated with her postural hypotension; therefore the patient's blood pressure medications were all discontinued with the exception of metoprolol, whose dose was reduced to 25 mg twice a day and the patient was started on ProAmatine 5 mg p.o. three times a day. Following this her symptoms improved and she no longer felt dizzy or lightheaded. The patient was able to ambulate independently without the use of assistive device. The patient will be discharged home today. DISCHARGE DIAGNOSES 1. Syncope. 2. Postural hypotension. 3. Gait instability. DISCHARGE MEDICATIONS 1. Alprazolam 0.25 mg p.o. b.i.d. p.r.n. for anxiety. 2. Metoprolol 25 mg p.o. b.i.d. 3. Lipitor 10 mg p.o. b.i.d. 4. Aspirin 81 mg p.o. daily. 5. Plavix 75 mg p.o. daily. 6. Levothyroxine 50 mcg p.o. daily. 7. Nitroglycerin p.r.n. for chest discomfort. DISCHARGE INSTRUCTIONS Patient is to follow up with her line inspector, Dr. Schneider on 02/06/2017 at 12:15. Dictated by... Corrine Kauffman/greg TD: 11/28/2016 09:23 JOB #: [id number] Unit #: [id number] #: [id number] Patient: NAM GUPTA DISCHARGE SUMMARY Page 1 of 1 X X DISCHARGE SUMMARY
--- NOTE | ~2016-11-23 | EKG ---
PATIENT: NAM GUPTA UNIT #: [id number] Ventricular Rate: 62 BPM Atrial Rate: 62 BPM P-R Interval: 176 ms QRS Duration: 152 ms Q-T Interval: 468 ms QTC Calculation(Bezet): 475 ms P [place]: 80 degrees Calculated R [place]: 20 degrees Calculated T [place]: 151 degrees Diagnosis Line: Normal sinus rhythm Diagnosis Line: Left bundle branch block with repolarization Diagnosis Line: abnormality Diagnosis Line: Abnormal ECG Diagnosis Line: When compared with ECG of 06-JUL-2016 14:13, Diagnosis Line: QRS duration has increased Diagnosis Line: T wave inversion now evident in Inferior leads Diagnosis Line: Confirmed by CHAPO BEDOLLA MD ([id number]) on 11/25/2016 Diagnosis Line: 1:56:43 PM INTERPRETING MD: GRAEME PATIÑO
--- NOTE | ~2016-11-23 | CO ---
Unit #: [id number] #: [id number] Patient: NAM GUPTA [id number] [facility] [address]. [place], [place] [address] [id number] MR#: [id number] NAME: NAM GUPTA ROOM: 561 Age: 86 Sex: F Admission Date: 11/23/2016 : 1930 Attending Physician: Vianey Warren M.D. Primary Care Physician: Kasie Tesfaye M.D. CONSULTATION REPORT DICTATED FOR [facility]. Dr. Saman Rodriguez is the rounding physician. REASON FOR ADMISSION Weakness and short of breath. HISTORY OF PRESENT ILLNESS The patient is an 86-year-old white female, who is known to Dr. Schneider with a history of coronary artery disease, anterolateral wall ID during a heart catheterization complication, chronic systolic heart failure with an EF of 30% to 35%, hypertension, hyperlipidemia, old left bundle-branch block, hypothyroidism, anxiety, and depression. The patient presented to the [facility]'s ED at 8:20 this morning with complaint of weakness and shortness of breath. The patient is very nondescript about timing of the worsening of her symptoms. The patient states that she has been weak and short of breath off and on for the past couple of years and she has had several medication adjustments as she relates the side affects of medications being the weakness and shortness of breath. The patient states though however for the past week, it has been worse and even today she was unable to stand. This inability to stand prompted her to come to the ER. She states that her primary care doctor had drawn some lab work in about a week ago. Her renal function was up, so he cut her hydrochlorothiazide and losartan doses back. She denies any nausea, vomiting, diarrhea, fevers, chills, lightheadedness, dizziness, or syncope. The patient reports that she was on a pill at home, she stopped taking it about a week ago because it made her feel poorly, but she is unable to tell me what the medication was or what it was even before. Last cardiac cath was in 11/2011. Left main was normal. Left circumflex 30% proximally. OM1 was normal. She had a patent LAD stent to the proximal LAD, distal LAD after the 2nd diagonal was 90% to 95% beyond that which was normal. RCA had a patent stent and her EF at that time was noted to be 60%. 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 Last echo in 03/2014, mild MR, [id number] TR, EF of 30% to 35% with apical akinesis, mild concentric LVH. PAST MEDICAL HISTORY 1. Coronary artery disease. 2. Anterolateral wall ID during heart catheterization in 2011. 3. LVEF of 30% to 35%. 4. Ischemic cardiomyopathy. 5. Hypertension. Unit #: [id number] #: [id number] Patient: NAM GUPTA 6. Hyperlipidemia. 7. Old left bundle-branch block. 8. Hypothyroidism. 9. Anxiety. 10. Depression. 11. Never smoker. 12. Intracranial aneurysm. 13. Vitamin B12 deficiency. 14. Adrenal nodule noted on CT of the abdomen and pelvis from 06/2016. PAST SURGICAL HISTORY Includes, 1. Heart catheterization. 2. Stent placement. 3. Cataract surgery. SOCIAL HISTORY The patient lives with her daughter. There is no alcohol or tobacco abuse. The patient typically walks around her house and does for herself which she states she has been able to do; however, she has not been able to get her on coffee and do some things that she wants to do due to her fatigue and weakness. FAMILY HISTORY Positive for coronary artery disease nonspecific. ALLERGIES Include penicillin and ticlopidine. HOME MEDICATIONS Include metoprolol 50 p.o. b.i.d., aspirin 81 mg p.o. daily, Synthroid 50 mcg p.o. daily, Plavix 75 mg p.o. daily, atorvastatin 10 mg p.o. daily, Norvasc 5 mg p.o. daily, hydrochlorothiazide 12.5 p.o. daily, Xanax 0.25 p.o. b.i.d. as needed for anxiety, Nitrostat 0.4 mg sublingual as needed for chest pain. REVIEW OF SYSTEMS See HPI. PHYSICAL EXAMINATION GENERAL: This is an 86-year-old white female, who is alert and oriented x3, in no apparent distress. VITAL SIGNS: Blood pressure is 172/70, pulse 62, temperature 97.6, respirations 22. HEENT: Pupils are equal, round, and reactive. Oral mucosa is moist. NECK: No JVD. No thyromegaly. No lymphadenopathy. No carotid bruits. HEART: S1 and S2. No S3 or S4. No clicks. No rubs. No murmurs. LUNGS: Clear. ABDOMEN: Soft. Bowel sounds positive. Nontender and nondistended. EXTREMITIES: No swelling. NEUROLOGICAL: No neuro deficits noted. DIAGNOSTIC STUDIES LABORATORY RESULTS: Troponin of less than 0.06, then 0.07. TSH 1.11. White count 7.6, hemoglobin 14.7, hematocrit 43.6, and platelets are 256. Sodium 135, potassium 4, chloride 96, CO2 of 26, glucose 98, BUN 22, creatinine 1.4, GFR 34.2, AST 34, ALT 16, alkaline phosphatase 61. UA was positive for leukocytes. Culture pending. Unit #: [id number] #: [id number] Patient: NAM GUPTA IMAGING STUDIES: Chest x-ray shows no acute processes. CARDIOVASCULAR STUDIES: EKG shows sinus rhythm with a left bundle-branch block. IMPRESSION 1. Generalized weakness. 2. Shortness of breath. 3. Coronary artery disease with a history of myocardial infarction and stents to the LAD and RCA. 4. Left ventricular ejection fraction of 30% to 35%. 5. Ischemic cardiomyopathy. 6. Hypertension. 7. Hyperlipidemia. 8. Urinary tract infection, culture pending. 9. Acute on chronic kidney disease. 10. Vitamin B12 deficiency. 11. Hypothyroidism. PLAN 1. At this time, we will plan for conservative medical management. Troponin is really indeterminate at 0.07. We will plan to trend the troponins every 6 hours x3 more sets. We will also obtain BMP, Mag, and CBC in the morning. We will obtain daily standing weights as well as strict I's and O's. Dr. Rodriguez wants to have the patient get overnight oximetry on room air. We will screen for sleep apnea with this test. 2. Further recommendations pending current test results and the patient's hospital course. Dictated by... BRENDA Vargas TD: 11/24/2016 10:53 JOB #: [id number] CONSULTATION REPORT Page 1 of 1 X X CONSULTATION REPORT
--- NOTE | ~2016-11-23 | HP ---
Unit #: [id number] #: [id number] Patient: NAM GUPTA [id number] [facility]. [place], [place] [address] [id number] I MR#: [id number] NAME: NAM GUPTA ROOM: 26186 Age: 86 Sex: F Admission Date: 11/23/2016 : 1930 Attending Physician: Vianey Warren M.D. Primary Care Physician: Kasie Tesfaye M.D. HISTORY AND PHYSICAL CHIEF COMPLAINT Weakness. HPI The patient is an 86-year-old female with a past medical history of coronary artery disease, congestive heart failure, hypertension, hyperlipidemia, left bundle branch block, intracranial aneurysm, B12 deficiency, hypothyroidism, anxiety, depression, adrenal nodule who presented to the emergency department for evaluation of the above. The patient states that she has had a 2 week history of increasing generalized weakness and dyspnea on exertion. She states that she has been short of breath when walking across the room. She reports a very occasional productive cough. She denies any fever. No chest pain, no paroxysmal nocturnal dyspnea, no swelling in the legs. She states that her weight fluctuates within a couple of pounds. She states that her appetite has been good. She denies any vomiting or diarrhea. She has had urinary frequency. She states that about a month ago Dr. Schneider had adjusted her medications. She states that about a week ago she was seen by her primary care physician who decreased a medication due to what sounds like possibly abnormal renal function. The patient doesn't recall the names of the medications that were changed. In the emergency department, urinalysis shows findings concerning for urinary tract infection. EKG shows left bundle branch block which is chronic. Initial troponin is 0.06, repeat is 0.07. She is being admitted to [facility] for evaluation and further treatment. She was given Rocephin in the emergency department. PAST MEDICAL HISTORY 1. Admission to [facility] July 06 through the 2016 for antibiotic-induced diarrhea. She also had acute on chronic kidney injury. Baseline creatinine is approximately 1.3. Discharge creatinine was 1.4. 2. Congestive heart failure. The patient had an echocardiogram March 28, 2014, that showed an ejection fraction of 30-35% with apical akinesis, mild concentric left ventricular hypertrophy, mild mitral regurgitation, mild to moderate tricuspid regurgitation. The patient sees Dr. Schneider. 3. Coronary artery disease, status post cardiac stent placement. 4. Hypertension. 5. Hyperlipidemia. 6. Chronic left bundle branch block. 7. Intracranial aneurysm. Unit #: [id number] #: [id number] Patient: NAM GUPTA 8. B12 deficiency. 9. Hypothyroidism. 10. Anxiety/depression. 11. Adrenal nodule. PAST SURGICAL HISTORY 1. Cardiac catheterization. 2. Cardiac stent placement. 3. Cataract surgery. SOCIAL HISTORY The patient's daughter lives with her. There is no tobacco or alcohol use. She typically walks without assistance. Her code status is a Full Code. FAMILY HISTORY Notable for coronary artery disease. ALLERGIES Penicillin, ticlopidine. HOME MEDICATIONS 1. Metoprolol 50 mg twice daily. 2. Aspirin 81 mg daily. 3. Levothyroxine 50 mcg daily. 4. Plavix 75 mg daily. 5. Atorvastatin 10 mg daily. 6. Amlodipine 5 mg daily. 7. Hydrochlorothiazide 12.5 mg daily. 8. Alprazolam 0.25 mg twice daily p.r.n. 9. Nitroglycerin 0.4 mg sublingual p.r.n. REVIEW OF SYSTEMS A complete review of systems is negative except as indicated in the HPI. The patient states that she has felt intermittently lightheaded in association with weakness. She states that the lightheadedness has been worse with position change. DIAGNOSTIC TESTS CARDIOVASCULAR: EKG shows chronic left bundle branch block with a rate of 62 beats per minute. IMAGING: Chest x-ray shows nothing acute. LABORATORY: Troponin is 0.06. Repeat was 0.07. Complete blood count is completely normal. Comprehensive metabolic panel notable for chloride 96, BUN and creatinine 22 and 1.4 respectively. TSH is 1.11. Urinalysis is notable for 3+ leukocyte esterase, 10-25 white blood cells, 1+ bacteria with moderate squamous cells. PHYSICAL EXAMINATION VITAL SIGNS: Temperature is 97.8, pulse 77, respirations 14, blood pressure 131/85. Oxygen saturation 100% on room air. GENERAL: The patient is a very pleasant female who is awake and Unit #: [id number] #: [id number] Patient: NAM GUPTA alert in no acute distress. HEENT: The head is atraumatic. Mucous membranes are moist. NECK: Supple. Trachea is midline. CARDIOVASCULAR: Regular rate and rhythm. LUNGS: Clear to auscultation bilaterally with no increased work of breathing. ABDOMEN: Soft, nontender with bowel sounds present in all four quadrants. EXTREMITIES: Nontender with no pedal edema. NEURO: The patient is awake and alert. She follows commands. PSYCH: Mood and affect are normal. The patient is cooperative. SKIN: Skin of examined areas is warm and dry. ASSESSMENT The patient is a 86-year-old female with: 1. General weakness. 2. Urinary tract infection. The patient has not had a positive urine culture in [facility]. She was given Rocephin in the emergency department. 3. Elevated troponin, indeterminate. The patient has had dyspnea on exertion. EKG shows chronic left bundle branch block. Troponin was 0.06 and then subsequently 0.07. 4. Dyspnea on exertion, concerning for possible anginal equivalent versus worsening CHF. 5. Coronary artery disease, status post stent placement. 6. Congestive heart failure with ejection fraction of 30-35% noted on echocardiogram in March of 2014. 7. Hypertension. 8. Hyperlipidemia. 9. Chronic left bundle branch block. 10. Intracranial aneurysm. 11. B12 deficiency. 12. Hypothyroidism. 13. Anxiety/depression. 14. Adrenal nodule. PLAN 1. Admit for observation to intermediate level. 2. Healthy heart diet. 3. Fall precautions. 4. PT/OT to evaluate and treat. 5. Orthostatics q. shift. 6. Blood cultures x2. 7. Urine culture and sensitivity on urine in the lab. 8. Rocephin 1 g IV daily pending results of urine culture. 9. Serial cardiac enzymes. 10. Fasting lipid panel. 11. 2D echo has already been ordered. 12. Consult Dr. Schneider regarding elevated troponin. 13. Supplemental oxygen. 14. SCDs for DVT prophylaxis. 15. Repeat labs in the morning. 16. Additional workup and consultants based on above. Dictated by Vianey Warren M.D. Unit #: [id number] #: [id number] Patient: NAM GUPTA AW/df TD: 11/23/2016 14:21 JOB #: [id number] HISTORY AND PHYSICAL Page 1 of 1 X Vianey Warren MD X HISTORY AND PHYSICAL
--- NOTE | ~2016-11-23 | CR72 ---
[facility] A Service of [facility] RADIOLOGY TEXT RESULTS PATIENT: NAM GUPTA LOCATION: [facility] [id number] : 31 UNIT #: [id number] AGE: [address]: Vianey Warren MD SEX: F ORDER DR: [id number] [facility] [address] [place], [place] [address] [id number] MR#: [id number] Acc #: [id number] NAME: NAM GUPTA : 1930 SEX: F STUDY DATE/TIME: 11/23/2016 9:22 UNIT: [facility] ROOM: [facility] STUDY DESCRIPTION: CR Chest Single View Portable Attending Physician: Vianey Warren M.D. Ordering Physician: Zenaida Iglesias P.A.-C. Primary Care Physician: Kasie Tesfaye M.D. MEDICAL IMAGING REPORT This report is preliminary unless electronic signature is present EXAM Portable chest, 11/23/2016. HISTORY Shortness of breath and generalized weakness for 1 week. Benign essential hypertension, anemia. FINDINGS Exam is somewhat limited by patient rotation. Cardiac and mediastinal structures are stable compared with 06/29/2016. Lungs are hyperinflated with emphysematous and fibrotic changes characteristic of COPD. No airspace consolidation is seen. There are no pleural effusions. IMPRESSION COPD. No active pulmonary disease. Dictated by... Moe Sr M.D. THIS IS AN ELECTRONICALLY VERIFIED REPORT Moe Sr M.D. at 11/24/2016 6:32 AM WILLIE/mal TD: 11/23/2016 22:17 JOB #: [id number] MEDICAL IMAGING REPORT Page 1 of 1 COPY
[~2016-11-23 08:14] MED LIST changes: -AMLODIPINE BESYL5 MG PO; -LOSARTAN POTASS50 MG PO; -PROAMATINE2.5 MG PO
[2016-11-23 09:14] LABS: POC - CKMB <1.0 ng/mL (0.0-7.9); POC - TROPONIN 0.06 ng/mL (<=0.05)
[2016-11-23 09:16] LABS: BASOPHIL# 0.1 X10e3 (0-0.3); BASOPHIL% 1.4 % (0-2.5); EOSINOPHIL# 0.1 X10e3 (0-0.7); EOSINOPHIL% 1.7 % (0.0-7.0); HEMATOCRIT 43.6 % (35.0-45.0); HEMOGLOBIN 14.7 gm/dL (12.0-16.0); LYMPHOCYTE# 2.3 X10e3 (1.0-3.5); LYMPHOCYTE% 29.6 % (17.0-45.0); MEAN CELL VOLUME 89.6 FL (83-96); MEAN CORPUSCULAR HEMOGLOBIN 30.3 PG (28-34); MEAN CORPUSCULAR HGB CONC 33.8 g/dL (30-36); MEAN PLATELET VOLUME 8.7 FL (6.5-11.5); MONOCYTE# 0.6 X10e3 (0-1.0); NEUTROPHIL# 4.5 X10e3 (1.5-7.1); NEUTROPHIL% 59.3 % (40-75); PLATELET COUNT 256 X10e3 (140-420); RED BLOOD COUNT 4.86 X10e (3.90-5.30); RED CELL DISTRIBUTION WIDTH 13.5 % (11.0-15.5); WHITE BLOOD COUNT 7.6 X10e3 (4.0-10.5)
[2016-11-23 09:17] LABS: DIFF IND NO
[2016-11-23 09:45] LABS: ALBUMIN SERUM 4.5 g/dL (3.5-5.0); BILIRUBIN, DIRECT 0.3 mg/dL (0.0-0.2); BILIRUBIN,INDIRECT 0.7 mg/dL (0.0-0.9); BUN/CREATININE RATIO 15.71; CALCIUM SERUM 9.9 mg/dL (8.4-10.2); CREATININE SERUM 1.4 mg/dL (0.6-1.4); GLOM FILT RATE Estimated 34.2 mL/min (>60); PROTEIN TOTAL SERUM 8.1 g/dL (6.0-8.3)
[2016-11-23 10:10] LABS: URINE SOURCE CLEAN CATCH
[2016-11-23 10:33] LABS: URINE APPEARANCE CLOUDY; URINE BILIRUBIN NEG (NEG); URINE BLOOD NEG (NEG); URINE COLOR YELLOW; URINE GLUCOSE NEG (NEG); URINE KETONE TRACE (NEG); URINE LEUKOCYTE ESTERASE 3+ (NEG); URINE NITRATE NEG (NEG); URINE PH 7.5 (5-8); URINE PROTEIN NEG (NEG); URINE SPECIFIC GRAVITY 1.009 (1.003-1.035); URINE UROBILINOGEN 0.2 MG/DL (NEG)
[2016-11-23 10:35] LABS: CULTURE INDICATED? YES; URBCS1 AUWI 0-2 /[HPF] (0-2); URINE BACTERIA AUWI 1+ (NEGATIVE); URINE SQUAMOUS EPITHELIAL CELL MOD /[HPF]
[2016-11-23 10:52] LABS: POC - CKMB <1.0 ng/mL (0.0-7.9); POC - TROPONIN 0.07 ng/mL (<=0.05)
[2016-11-23] MEDS ORDERED: ATORVASTATIN CA10 MG PO (11:10)
[2016-11-23] MEDS ORDERED: HYDROCHLOROTH12.5 MG PO (11:11)
[2016-11-23] MEDS ORDERED: AMLODIPINE BESYL5 MG PO (11:11)
[2016-11-23] MEDS ORDERED: ALPRAZOLAM0.25 MG PO (11:12)
[2016-11-23] MEDS ORDERED: LOSARTAN POTASS50 MG PO (11:14)
[2016-11-23] MEDS ORDERED: NITROSTAT0.4 MG SL (11:14)
[2016-11-23 13:51] LABS: CHOLESTEROL 168 mg/dL (0-200); HDL CHOLESTEROL 68 mg/dL (35-95); LDL CHOLESTEROL 79 mg/dL (-130); LDL/HDL RATIO 1 RATIO (0-4); TRIGLYCERIDES 105 mg/dL (10-160)
[2016-11-23 17:06] LABS: POC - CKMB <1.0 ng/mL (0.0-7.9); POC - TROPONIN 0.06 ng/mL (<=0.05)
[2016-11-23 19:54] LABS: CK TOTAL 56 IU/L (26-140)
[2016-11-23 23:23] LABS: %MB 3.3 % (0.0-4.0); MB 2.6 ng/ml
[2016-11-24 07:25] LABS: %MB 1.3 % (0.0-4.0); MB 2.2 ng/ml
[2016-11-24 08:06] LABS: BASOPHIL# 0.1 X10e3 (0-0.3); BASOPHIL% 0.7 % (0-2.5); EOSINOPHIL# 0.2 X10e3 (0-0.7); EOSINOPHIL% 1.9 % (0.0-7.0); HEMATOCRIT 38.9 % (35.0-45.0); HEMOGLOBIN 13.1 gm/dL (12.0-16.0); LYMPHOCYTE# 2.1 X10e3 (1.0-3.5); LYMPHOCYTE% 25.2 % (17.0-45.0); MEAN CELL VOLUME 90.7 FL (83-96); MEAN CORPUSCULAR HEMOGLOBIN 30.5 PG (28-34); MEAN CORPUSCULAR HGB CONC 33.7 g/dL (30-36); MEAN PLATELET VOLUME 8.2 FL (6.5-11.5); MONOCYTE# 0.9 X10e3 (0-1.0); MONOCYTE% 11.3 % (3.0-12.0); NEUTROPHIL% 60.9 % (40-75); PLATELET COUNT 239 X10e3 (140-420); RED BLOOD COUNT 4.29 X10e (3.90-5.30); RED CELL DISTRIBUTION WIDTH 13.5 % (11.0-15.5); WHITE BLOOD COUNT 8.3 X10e3 (4.0-10.5)
[2016-11-24 08:13] LABS: DIFF IND NO
[2016-11-24 08:33] LABS: BUN/CREATININE RATIO 19.23; CALCIUM SERUM 9.2 mg/dL (8.4-10.2); CREATININE SERUM 1.3 mg/dL (0.6-1.4); GLOM FILT RATE Estimated 37.4 mL/min (>60); MAGNESIUM 1.9 mg/dL (1.6-3.0); POTASSIUM 3.2 mmol/L (3.5-5.1)
[2016-11-25 05:44] LABS: HEMATOCRIT 37.9 % (35.0-45.0); MEAN CORPUSCULAR HEMOGLOBIN 30.8 PG (28-34); MEAN CORPUSCULAR HGB CONC 34.2 g/dL (30-36); MEAN PLATELET VOLUME 8.1 FL (6.5-11.5); RED BLOOD COUNT 4.21 X10e (3.90-5.30); RED CELL DISTRIBUTION WIDTH 13.3 % (11.0-15.5); WHITE BLOOD COUNT 8.9 X10e3 (4.0-10.5)
[2016-11-25 06:47] LABS: CALCIUM SERUM 9.3 mg/dL (8.4-10.2); CREATININE SERUM 1.3 mg/dL (0.6-1.4); GLOM FILT RATE Estimated 37.4 mL/min (>60); POTASSIUM 4.1 mmol/L (3.5-5.1)
[2016-11-25 18:22] LABS: URINE SOURCE CLEAN CATCH
[2016-11-25 18:28] LABS: URINE APPEARANCE CLEAR; URINE BILIRUBIN NEG (NEG); URINE BLOOD NEG (NEG); URINE COLOR YELLOW; URINE GLUCOSE NEG (NEG); URINE KETONE NEG (NEG); URINE LEUKOCYTE ESTERASE 1+ (NEG); URINE NITRATE NEG (NEG); URINE PROTEIN NEG (NEG); URINE SPECIFIC GRAVITY 1.015 (1.003-1.035); URINE UROBILINOGEN 0.2 MG/DL (NEG)
[2016-11-25 18:30] LABS: URBCS1 AUWI 0-2 /[HPF] (0-2); URINE BACTERIA AUWI NEG (NEGATIVE); URINE SQUAMOUS EPITHELIAL CELL OCC /[HPF]
[2016-11-27] MEDS ORDERED: PROAMATINE2.5 MG PO (15:11)
== END 2016-11-27 17:30 | disposition home health service (06) | DRG 312 ==
LOC: CED 08:14 → CEDOF 13:10 → C5B 13:10 → CED 13:10 → C5B 13:10 → CED 13:30 → CEDOF 13:30 → C5B 18:37 → CEDOF 18:37 → C5B 18:37 → CED 11-25 13:50 → CEDOF 11-25 13:50 → C5B 11-25 13:50
PROVIDERS: Family Medicine; Internal Medicine; Internal Medicine Cardiovascular Disease; Physician Assistant
PROC: B24BYZZ Ultrasonography of Heart with Aorta using Other Contrast (ICD-10-PCS; principal; 2016-11-25)
DX: I95.2 Hypotension due to drugs (principal); I50.23 Acute on chronic systolic (congestive) heart failure; N17.9 Acute kidney failure, unspecified; I67.1 Cerebral aneurysm, nonruptured; I25.5 Ischemic cardiomyopathy; I08.1 Rheumatic disorders of both mitral and tricuspid valves; E44.1 Mild protein-calorie malnutrition; I25.10 Atherosclerotic heart disease of native coronary artery without angina pectoris; I13.0 Hypertensive heart and chronic kidney disease with heart failure and stage 1 through stage 4 chronic kidney disease, or unspecified chronic kidney disease; N39.0 Urinary tract infection, site not specified; Z68.1 Body mass index [BMI] 19.9 or less, adult; I44.7 Left bundle-branch block, unspecified; E78.5 Hyperlipidemia, unspecified; E53.8 Deficiency of other specified B group vitamins; E03.9 Hypothyroidism, unspecified; F41.9 Anxiety disorder, unspecified; F32.9 Major depressive disorder, single episode, unspecified; Z98.49 Cataract extraction status, unspecified eye; Z88.0 Allergy status to penicillin; Z79.82 Long term (current) use of aspirin; I25.2 Old myocardial infarction; N18.9 Chronic kidney disease, unspecified; R26.9 Unspecified abnormalities of gait and mobility
CPT/HCPCS: 36415; 71010; 80048; 80061; 80076; 81003; 82550; 82553; 82607; 82947; 83735; 84443; 84484; 85025; 85027; 85652; 86140; 87040; 87086; 93005; 93306; 97110; 97116; 97162; 97166; 97530; 97535; 99285; G8978-GP; G8979-GP; G8987-GO; G8988-GO; G8988-GP; G8989-GO; G8989-GP; J0696